=== PATIENT | male | born 1970 | race Caucasian/White ===

== ENCOUNTER 2017-09-09 02:51 | Emergency (ER) | payer OTHER ==
[2017-09-09] MEDS: HYDROCODONE/APAP (10/325) TAB PO (03:53)
[2017-09-09] MEDS: ONDANSETRON (ODT) 4 MG TAB ODT (03:54)
[2017-09-09] MEDS: DIPHTH/TET/ACEL PERTUSS (ADULT) 0.5 ML VIAL IM* (03:55)
== END 2017-09-09 04:32 | disposition home or self-care (01) ==
LOC: E/R 02:51
DX: S20.462A Insect bite (nonvenomous) of left back wall of thorax, initial encounter (principal); W57.XXXA Bitten or stung by nonvenomous insect and other nonvenomous arthropods, initial encounter; Y92.9 Unspecified place or not applicable; Z23 Encounter for immunization
CPT/HCPCS: 90471; 90715; 99284-25